=== PATIENT | female | born 1945 | race Caucasian/White ===

== ENCOUNTER 2019-09-29 08:08 | Day surgery (SDC) | payer MEDICARE, OTHER ==
[~2019-09-29 08:08] MED LIST: Lactated Ringers 1,000 ML IV SCH; Midazolam 1 MG/ML 2 ML SDV ONE; Propofol 200 MG/20 ML SDV ONE; Sodium Chloride 0.9% 10 ML Syringe FLUSH PRN
[2019-09-29] MEDS ORDERED: Lactated Ringers 1,000 ML ONE (08:51)
[2019-09-29] MEDS ORDERED: Propofol 200 MG/20 ML SDV ONE (08:51)
--- NOTE | 2019-09-29 10:16 | PCM.PRNOTE ---
- Free Text/Narrative Note: PROCEDURE PERFORMED: Colonoscopy with biopsies PRE-PROCEDURE DIAGNOSIS/INDICATION FOR PROCEDURE: Chronic diarrhea, +FOBT, +calprotectin, history of microscopic colitis (2004), last colonoscopy 2012 without abnormality CONSENT: Informed consent was obtained prior to the procedure after discussion of the risks (including pain, bleeding, infection, perforation, missed polyps, inability to completely remove polyps or complete procedure necessitating repeat colonoscopy, adverse reaction to anesthesia, cardiovascular event), benefits and alternatives and expected outcomes. The patient expressed understanding and wished to proceed. Verbal consent given and consent form signed. PROCEDURAL PAUSE: Completed SEDATION: Per anesthesia DESCRIPTION OF PROCEDURE: Patient was placed in the left lateral decubitus position. After adequate sedation and anesthetic was administered, a rectal exam was performed revealing no abnormalities. A lubricated Olympus Video Colonoscope was inserted into the rectum and air insufflation was performed. The colonoscope was advanced through the rectum, sigmoid, descending, transverse, and ascending colon without difficulties. The cecum was reached and the ileocecal valve as well as the appendiceal orifice were identified and pictorially documented. Ileocecal valve was intubated revealing normal ileum mucosa. After adequate visualization of the cecum, the scope was withdrawn, giving 360-degree views of the colonic mucosa and retroflexion was performed in the rectum with the following findings noted: Ileocecal valve: Normal Ileum: Normal Cecum: Normal Ascending colon: Normal Hepatic flexure: Normal Transverse colon: Normal Splenic flexure: Normal Descending colon: Normal Sigmoid colon: Normal Rectum: Internal hemorrhoids No polyps were found. Multiple random biopsies were taken with cold forceps of the right colon, left colon, and rectum and placed in separate pathology containers to evaluate for microscopic colitis. The scope was straightened, air suction performed, and the scope withdrawn without complication. Preparation adequacy excellent. IMPRESSION: Colonoscopy performed revealing internal hemorrhoids. Pathology now pending to evaluate for microscopic colitis. PLAN: Follow-up in clinic in 1 week to review pathology results.
== END 2019-09-29 11:40 | disposition home or self-care (01) ==
LOC: KA.SDS 08:08
PROVIDERS: ATTEND Family Medicine
DX: K52.831 Collagenous colitis (principal); K64.8 Other hemorrhoids; I10 Essential (primary) hypertension; E78.5 Hyperlipidemia, unspecified; M81.8 Other osteoporosis without current pathological fracture; F41.9 Anxiety disorder, unspecified; G47.00 Insomnia, unspecified; R94.6 Abnormal results of thyroid function studies; Z98.890 Other specified postprocedural states; Z79.899 Other long term (current) drug therapy
CPT/HCPCS: 00811; 45380; J7120; 88305; 88313

== ENCOUNTER 2024-07-21 15:33 | Emergency (ER) | payer MEDICARE, OTHER ==
[2024-07-21 15:56] VITALS: BP 192/83; PULSE 68
== END 2024-07-21 16:55 | disposition home or self-care (01) ==
LOC: KA.ED 15:33
DX: I12.9 Hypertensive chronic kidney disease with stage 1 through stage 4 chronic kidney disease, or unspecified chronic kidney disease (principal); G44.1 Vascular headache, not elsewhere classified; E78.00 Pure hypercholesterolemia, unspecified; N18.9 Chronic kidney disease, unspecified; Z79.899 Other long term (current) drug therapy; Z90.710 Acquired absence of both cervix and uterus; Z90.49 Acquired absence of other specified parts of digestive tract
CPT/HCPCS: 99284